=== PATIENT | male | born 1985 | race Caucasian/White ===

== ENCOUNTER → 2019-06-12 09:59 | Outpatient (CLI) | payer OTHER, SELFPAY ==
--- NOTE | 2019-06-12 10:03 | NM_ITS ---
CLINICAL: 33-year-old male with history of right upper quadrant abdominal pain. RADIONUCLIDE HEPATOBILIARY SCINTIGRAPHY COMPARISON: None available FINDINGS: Following the intravenous administration of 5.5 mCi of 99m Tc Mebrofenin, hepatobiliary images reveal: 1. Relatively prompt and homogeneous radiopharmaceutical concentration is noted by a normal sized liver. No parenchymal defects are identified. 2. Gallbladder activity is identified at 15 minutes post radiopharmaceutical administration. 3. Small intestinal tract is observed at 10 minutes following tracer injection. 4. Washout of the radiopharmaceutical by the hepatic parenchyma appears qualitatively normal. Cholecystokinin (0.02 ug/kg) was administered intravenously over a 30-minute period. The post CCK gallbladder ejection fraction calculated at 20 minutes following Cholecystokinin administration was noted to be 48.0 % (normal greater than 35%). During 30 minutes of post CCK imaging, there is no scintigraphic evidence of reflux of the radiotracer into the common hepatic duct or refilling of the gallbladder. There is scintigraphic evidence of subtle post CCK duodenal gastric reflux. NM/Hepatobilliary Img w/Pharm Int IMPRESSION: 1. A gallbladder ejection fraction calculated to be greater than 35% following the administration of Cholecystokinin makes the probability of functional hepatobiliary disease (gallbladder and/or sphincter of Oddi dyskinesia) and/or organic hepatobiliary disease (chronic acalculous cholecystitis and/or cystic duct syndrome) to be low. (Alba Cevallos et al, Journal of Nuclear Medicine 32:1695, 1990). 2. There is scintigraphic evidence of post CCK duodenal-gastric reflux as described above. (Radha et al, Nucl Med Dede Anita Press pg. 35, 1980). Electronically Signed: Aramis Deras DO at 8:07 EST Tel , Service support ,
== END ==
PROVIDERS: Family Provider Family Medicine; PCP Family Medicine; Referring Provider Family Medicine; Visit Provider Family Medicine
DX: R10.11 Right upper quadrant pain (principal)
CPT/HCPCS: 78227; A9537; J2805

== ENCOUNTER 2019-10-20 07:28 | Day surgery (SDC) | payer OTHER, SELFPAY ==
[2019-10-20 08:23] VITALS: BP 140/82; PULSE 54; RESP 16; TEMP 36.6; O2SAT 99; BMI 30.7
[2019-10-20] MEDS: Lactated Ringers 1,000 ML 100 ML IV (08:52)
--- NOTE | 2019-10-20 09:15 | DCINST_ITS ---
You will use the following diet at home:: No restrictions Your food should be the consistency of: Regular Discharge Activity: May not drive while taking narcotic pain medications. Call your doctor if your incision/area has: Increased Pain/ Swelling Additional Dressing/Incision Instructions:: head of bed elevation. mupirocin to nostrils and incision twice daily. saline to nostrils 5 times daily. keep nasal cast dry - except the morning of your follow up get your nose very wet. Allergies/Adverse Reactions: Allergies No Known Allergies Allergy (Verified 10/19/19 11:47) Medications to take at Discharge Cholecalciferol (Vitamin D3) [Vitamin D3] 25 mcg PO DAILY 10/19/19 Fluoxetine [Prozac] 20 mg PO DAILY 10/19/19 Omeprazole [Prilosec] 20 mg PO DAILY 10/19/19 Primary Care Physician: Cassandra Yousif PA-C [Primary Care Provider] - Test Results: Test results from this visit will be discussed in further detail at your follow- up appointment, if applicable. Please Follow Up With: Lemuel Wu MD When: 1 week
--- NOTE | 2019-10-20 09:18 | PCM.OPRPT ---
Problem List (1) Nasal congestion Status: Chronic (2) Deviated nasal septum Status: Chronic (3) Nasal valve collapse Status: Chronic (4) Nasal turbinate hypertrophy Status: Chronic Report of Operation Date of Procedure: 10/20/19 Pre-Operative Diagnosis: 1. nasal congestion. 2. nasal septal deviation. 3. acquired nasal deformity. 4. turbinate hypertrophy, right and left. 5. internal nasal valve collapse, right and left Post-Operative Diagnosis: 1. nasal congestion. 2. nasal septal deviation. 3. acquired nasal deformity. 4. turbinate hypertrophy, right and left. 5. internal nasal valve collapse, right and left Surgery/Procedure Performed:: 1. open septorhinoplasty. 2. correction internal nasal valve collapse, right and left. 3. submucous resection inferior turbinates, right and left Type of Anesthesia:: General/Regional Description of Procedure: on the day of the procedure, after appropriate informed consent was obtained, the patient was brought to the operating room and placed in supine position on the operating table. he was placed under general endotracheal anesthesia by the anesthesiologist. the endotracheal tube was secured, the eyes were taped. the table was rotated 90 degrees toward the anesthesiologist. the nose was injected with lidocaine/epinephrine and decongested with oxymetazoline soaked pledgets. the face was prepped and draped in sterile fashion. an inverted v columellar incision was made with a point hope ira blade. this was taken into right and left marginal incisions using three point retraction and an iris scissor. the right and left lower lateral cartilages were skeletonized. the scroll region was located and the right and left upper lateral cartilages were skeletonized. the medial crura were lateralized with brown forceps and the anterior septal angle was located. the septum was off of the maxillary crest into the left nasal cavity. right and left submucoperichondrial flaps were raised with a apolinar elevator. these were taken posteriorly to the bony cartilaginous junction and inferiorly to the maxillary crest. given the patient's severe deformity, an anterior septal reconstruction was deemed necessary. a 1cm x 1cm area was preserved off of the keystone area and the remainder of the septum was removed with a apolinar elevator. this was refashioned to the correct shape and saved for later reconstruction. deviated portions of the perpendicular plate of the ethmoid and vomer were removed using a pema helton. the right and left upper lateral cartilages were disarticulated from the septum using a 15 blade. a 1cm x 2mm internal customer advisor specialist graft was placed between the right upper lateral cartilage and nasal septum. this was sutured into place using 4-0 PDS. the refashioned septum was placed as a left internal customer advisor specialist graft and sutured to the maxillary crest and in between the left upper lateral cartilage and septum using 4-0 PDS. a 8mm x 2mm columellar strut was sutured into place to facilitate tip support. the submucoperichondrial flaps were reapproximated using 4-0 chromic, several incorporating the anterior septal reconstruction. the head of the right and left inferior turbinates were injected with lidocaine/epinephrine. the head of the right inferior turbinate was incised using a 15 blade, dissected submucosally using a apolinar elevator, reduced using suction electrocautery and outfractured using a boies elevator. the head of the left inferior turbinate was incised using a 15 blade, dissected submucosally using a apolinar elevator, reduced using suction electrocautery and outfractured using a boies elevator. the inverted v columellar incision was closed using 7-0 vicryl. felix splints were sutured into place and a dorsal nasal splint was placed. an orogastric tube was inserted and contents were evacuated. the latera system trocar was loaded and nasal surface cruz were made. the right ala was everted with a double pronged skin hook and the trocar was inserted into the vestibular skin. this was taken lateral to the upper lateral cartilages and nasal bones. the implant was deployed. the left ala was everted with a double pronged skin hook and the trocar was inserted into the vestibular skin. this was taken lateral to the upper lateral cartilages and nasal bones. the implant was deployed. the patient was awoken from anesthesia and transferred to the PACU in stable condition.
[2019-10-20] MEDS: Oxymetazoline 0.05% 1 SPRAY SPRAY.BTL 15 SPRAY (10:19)
[2019-10-20] MEDS: Mupirocin Ointment 22gm Tube 1 APPLIC (10:22)
[2019-10-20 12:37] VITALS: BP 118/82; BP 140/82; PULSE 90; RESP 16; TEMP 35.9; O2SAT 92
[2019-10-20 12:45] VITALS: BP 136/71; BP 140/82; PULSE 85; RESP 16; O2SAT 94
[2019-10-20 13:02] VITALS: BP 140/82; BP 140/86; PULSE 86; RESP 16; O2SAT 94
[2019-10-20 13:04] VITALS: BP 140/82; BP 142/83; PULSE 84; RESP 16; TEMP 36.5; O2SAT 94
[2019-10-20 13:59] VITALS: BP 136/81; BP 140/82; PULSE 69; RESP 16; TEMP 36.7; O2SAT 96
== END 2019-10-20 14:05 | disposition home or self-care (01) ==
LOC: SDC 07:30 → AC 07:30
PROVIDERS: PCP Family Medicine; Referring Provider Otolaryngology; Visit Provider Otolaryngology
PROC: (CPT 30140; principal; 2019-10-20 09:05)
DX: J34.2 Deviated nasal septum (principal); J34.3 Hypertrophy of nasal turbinates; J34.89 Other specified disorders of nose and nasal sinuses; M95.0 Acquired deformity of nose; R09.81 Nasal congestion; F41.9 Anxiety disorder, unspecified; Z79.899 Other long term (current) drug therapy; Z11.59 Encounter for screening for other viral diseases
CPT/HCPCS: 00160; 30140; 30420; 87635; G2023; J7120; J2405; U0002

== ENCOUNTER 2020-04-25 07:20 | Day surgery (SDC) | payer OTHER, SELFPAY ==
[2020-03-25 13:06] VITALS: BMI 31.0
[2020-04-25 07:35] VITALS: BP 131/75; PULSE 67; RESP 16; TEMP 36.1; O2SAT 99; BMI 31.2
--- NOTE | 2020-04-25 07:47 | HP_ITS ---
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 Is patient in pain?: No Allergies No Known Allergies Allergy (Verified 03/25/20 13:07) Medications Cholecalciferol (Vitamin D3) [Vitamin D3] 25 mcg PO DAILY 10/19/19 [History Confirmed 03/25/20] Fluoxetine [Prozac] 20 mg PO DAILY 10/19/19 [History Confirmed 03/25/20] Omeprazole [Prilosec] 20 mg PO DAILY 10/19/19 [History Confirmed 03/25/20] [facility] Medical History Nasal congestion (Chronic) Deviated nasal septum (Chronic) Nasal valve collapse (Chronic) Nasal turbinate hypertrophy (Chronic) Anxiety (Acute) Diarrhea (Acute) GERD (gastroesophageal reflux disease) (Acute) History of back problems (Acute) Surgical History History of rhinoplasty (Acute) history balloon sinusplasty (Acute) Family History Grandfather Cancer prostate cancer Social History (Updated 03/25/20 @ 13:[address] 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 Patient said that earlier this year he had right upper quadrant abdominal pain and was being worked up for gallbladder he had a HIDA scan with ejection fraction which showed it to be about 48% and a gallbladder ultrasound which showed no sonographic Rod sign no pericholecystic fluid and no gallstones. His common bile duct measured 2.5 mm. Patient has been having issues with reflux over the last 2 to 3 years. He has taken [id number] Prilosec on 2 separate occasions and its worked well for him but he still has it if he is not on the medication on a fairly regular basis. Since the spring the patient has been experiencing diarrhea is worse when he has been drinking his preworkout drink occasionally with beer but many times is just spontaneous and without provocation. He has no family history of Crohn's disease ulcerative colitis or celiac disease. Sometimes with his diarrhea he will have abdominal pain he has had no fevers joint nausea he has had no recent travels to the tropics he has not started any new medications he has not noticed any weight loss. He states that many times that the stools have been mucousy in nature with high volumes of fluids and foul-smelling at times. ROS General General: Yes weight change; no appetite, fatigue, colon cancer, breast cancer or weakness HEENT HEENT: No difficulty swallowing, eye injury, eye surgery, swollen glands or hoarseness Endo Endocrine: No thyroid disease, diabetes mellitus, thyroid cancer, Hair loss, heat intolerance or cold intolerance Skin Skin: No rash or changing moles Breast Breast: No left breast lump, right breast lump, nipple discharge, breast pain, abnormal mammogram, abnormal US or breast enlargement Musc Musculoskeletal: Yes back problems; no arthritis, rheumatoid arthritis, gout or joint pain Cardio Cardiovascular: No murmur, pacemaker, heart disease, atrial fibrillation, high blood pressure, heart attack, heart stent, palpitations, shortness of breat with exertion or chest pain Psych Psychiatric: Yes anxiety; no depression or hearing voices Resp Respiratory: No shortness of breath, No sleep apnea, No cough, No COPD, No asthma, No emphysema, No wheezing Gastro Gastrointestinal: Yes abdominal pain, No nausea or vomiting, Yes diarrhea, No constipation, No blood in stool, Yes acid reflux, No hemorrhoids, No ulcers, Yes gallbladder problem, Yes black,tarry stools Alejandro Hematologic: No blood thinners, No blood disorders, No bleeding, No anemia, No blood clots Neuro Neurologic: No system reviewed and no additional complaints, except as docu, No as per HPI, No abnormal walking, No abnormal hearing, No abnormal movements, No abnormal speech, No behavioral changes, No burning sensations, No confusion, No seizure-like activity, No unsteadiness, No dizziness, No localized weakness, No frequent falls, No headache(s), No lack of coordination, No loss of vision, No memory loss, Yes numbness, No other visual disturbances, No radiating pain, No restless legs, No sensory deficit, No fainting, Yes tingling, No tremor(s), No weakness, No other Exam Const General: no acute distress, well developed, well hydrated Orientation: oriented to person, oriented to place, oriented to time [facility] Head: normocephalic, atraumatic Ears: external ears normal Mouth: moist mucous membranes Eyes Sclera: sclerae normal Pupils: normal by confrontation Neck Neck: no lymphadenopathy noted Neck mass: No Thyroid: thyroid normal, symmetrical Chest Chest palpation & inspection: normal inspection of the chest Breast Palpation: No nipple discharge Resp Effort & Inspection: normal respiratory effort Auscultation: clear to auscultation bilaterally Percussion: percussion normal Cardio Rate: regular rate Rhythm: regular rhythm Heart Sounds: no murmurs GI Palpation: soft, no hepatosplenomegaly, no masses, nontender Rectal Exam: other Other: Rectal exam deferred. Extrem General: normal to inspection, no clubbing, cyanosis or edema Assessment & Plan Problems 1. Gastroesophageal reflux disease, unspecified whether esophagitis present K21.9 2. Diarrhea, unspecified type R19.7 Plan I have discussed the above with the patient. I have offered the patient colonoscopy As well as an EGD for evaluation. I have explained the risks/benefits of the procedure and described the procedure. I have discussed the risks with the patient, including but not limited to: infection, bleeding, perforation of the GI tract requiring emergency surgery, inability to complete the procedure, injury to any internal organs, complications of anesthesia, etc. - the patient understands and agrees to proceed. I have answered all the patient's questions to the patient's satisfaction and the patient has no further questions. The patient has been given instructions for the colon cleansing preparation. We will be doing a biopsy of his duodenum as well as random colon biopsies. Coding Level of Care Code Off vis,new,level 3 Diagnoses Gastroesophageal reflux disease, unspecified whether esophagitis present K21.9 ??Esophagitis presence: esophagitis presence not specified Diarrhea, unspecified type R19.7 ??Diarrhea type: unspecified type COVID (Procedure Consent) Procedure Criteria Procedure Criteria: Yes Elective The surgeon/proceduralist and patient have discussed in detail the risk of exposure to and/or potential harm posed by the COVID-19 virus with having a surgery/procedure at this time versus the risk of? delaying the surgery/procedure. It is not possible to know either the risk of delaying the surgery or procedure or chance of getting an infection with perfect accuracy, but a joint decision was made between the patient and the surgeon/proceduralist ?to proceed at this time with the scheduled surgery/procedure as indicated on the consent form. I have re-examined the patient. There are no clinical changes since date of exam.
--- NOTE | 2020-04-25 08:30 | COLBX_PTH ---
PATIENT: ALOK SPICER LOC: EN U#:[id number] AGE/SX: 34/M ROOM: RE04/25/[address]: Dr. Sai Doss MD : 1985 BED: DIS: 04/25/2020 SPEC #: [id number] RECD: 04/25/20 11:40 STATUS: XAVIER HELEN #: [id number] SUDHA: 04/25/20 08:[address]: Sai Doss DEPT: SURGICAL PATHOLOGY RECD BY: Chintan Smith ENTERED: 04/25/20 13:03 SP TYPE: COLON BX OTHR DR: Cassandra Yousif PA-C Tissues: A - Duodenum, NOS B - Gastric mucous membrane C - Esophageal mucous membrane D - COLON BIOPSY E - Transverse colon Procedures: Special Stain Group II Surgery Specimen Level IV Alcian Blue/PAS (control) HEADER OPERATION: [place] [place] DIAGNOSIS: GERD, diarrhea TISSUE SUBMITTED: A - Duodenal biopsies, B - Biopsy for H. pylori, C - Esophageal biopsies, D - Random colonic biopsies, E - Polyp transverse colon MICROSCOPIC DIAGNOSIS A. Duodenal biopsy: Fragments of small intestinal mucosa, no pathologic diagnosis. B. Biopsy for H. pylori: Mild gastritis. See microscopic description and comment. C. Esophageal biopsy: Fragments of gastroesophageal mucosa with chronic inflammation. Intestinal metaplasia (goblet cell metaplasia) is not identified. See comment. D. Colon, random biopsy: Fragments of colonic mucosa, no pathologic diagnosis. E. Polyp transverse colon, biopsy: Fragments of hyperplastic polyp. SJ:edgard 04/26/20 COMMENT B. The results of immunohistochemistry for Helicobacter pylori will be reported separately ([id number]). C. Alcian blue/PAS stain with matched control is used in the evaluation of the specimen. MICROSCOPIC DESCRIPTION Slides are reviewed. B. The specimen shows fragments of gastric mucosa with chronic inflammatory cell infiltrates in the lamina propria consisting of lymphocytes and plasma cells, consistent with mild chronic gastritis. GROSS DESCRIPTION A - Received in fixative is one container labeled with the patient's name and designated duodenal biopsy. The specimen consists of two irregular fragments of light boyle soft tissue that in aggregate measure 0.4 x 0.3 x 0.1 cm. The specimen is totally submitted in one cassette. B - Received in fixative is one container labeled with the patient's name and designated biopsy for H. pylori. The specimen consists of multiple irregular fragments of light boyle soft tissue that in aggregate measure 0.5 x 0.2 x 0.1 cm. The specimen is totally submitted in one cassette. C - Received in fixative is one container labeled with the patient's name and designated esophageal biopsy. The specimen consists of multiple irregular fragments of light boyle soft tissue that in aggregate measure 1 x 0.4 x 0.1 cm. The specimen is totally submitted in one cassette. D - Received in fixative is one container labeled with the patient's name and designated random colonic biopsy. The specimen consists of multiple irregular fragments of light boyle soft tissue that in aggregate measure 1 x 1.2 x 0.1 cm. The specimen is totally submitted in one cassette. E - Received in fixative is one container labeled with the patient's name and designated polyp transverse colon. The specimen consists of multiple irregular fragments of light boyle soft tissue that in aggregate measure 0.8 x 0.5 x 0.1 cm. The specimen is totally submitted in one cassette. / SJ:rg 04/25/20 TC:1 [facility]: [id number] x5, [id number]
--- NOTE | 2020-04-25 08:30 | IMM_PTH ---
PATIENT: ALOK SPICER LOC: EN U#:[id number] AGE/SX: 34/M ROOM: RE04/25/[address]: Dr. Sai Doss MD : 1985 BED: DIS: 04/25/2020 SPEC #: [id number] RECD: 04/25/20 14:21 STATUS: XAVIER REQ #: [id number] SUDHA: 04/25/20 08:[address]: Sai Doss DEPT: IMMUNOHISTOCHEMISTRY RECD BY: Hanna Harding ENTERED: 04/25/20 14:22 SP TYPE: IMMUNO OTHR DR: Cassandra Yousif PA-C Tissues: B - Stomach, NOS Procedures: H Pylori (initial) PHYSICIAN & INSTITUTION [place] [id number] SPECIMEN INFORMATION: Tissue Source: B - Antrum biopsy Clinical Info: GERD, diarrhea Specimen Number: [id number] CPT code: 36762 METHODOLOGY: Deparaffinized sections of prefer/formalin-fixed tissue or PAP/DQ stained slides are incubated with monoclonal/polyclonal antibodies/oligonucleotide probes. Localization is made via biotin free immunoperoxidase method. Appropriate controls are performed and reacted as expected. Results on target cell population are indicated in the following table: RESULTS: ANTIBODY / CLONE RESULT Block B H Pylori (polyclonal) negative These tests were developed and their performance characteristics determined by [facility]. They may not have been cleared or approved by the U.S. Food and Drug Administration. The FDA has determined that such clearance or approval is not necessary. INTERPRETATION: B. Antrum, biopsy: Negative for Helicobacter pylori organisms. AM:edgard 04/27/20
[2020-04-25 09:05] VITALS: BP 117/69; BP 131/75; PULSE 79; RESP 16; TEMP 35.9; O2SAT 97
[2020-04-25 09:10] VITALS: BP 122/71; BP 131/75; PULSE 77; RESP 16; O2SAT 94
--- NOTE | 2020-04-25 09:10 | OP.EGD_ITS ---
Patient Name: Kaveh Wood Procedure Date: 04/25/2020 8:31 AM Date of : 1985 Age: 34 Procedure: Upper GI endoscopy Indications: Gastro-esophageal reflux disease Providers: Sai Doss MD Referring MD: Cassandra Yousif Medicines: See the Anesthesia note for documentation of the administered medications Patient Profile: This is a 34 year old male. Refer to note in patient chart for documentation of history and physical. Complications: No immediate complications. Procedure: Pre-Anesthesia Assessment: - Prior to the procedure, a History and Physical was performed, and patient medications and allergies were reviewed. The patient's tolerance of previous anesthesia was also reviewed. The risks and benefits of the procedure and the sedation options and risks were discussed with the patient. All questions were answered, and informed consent was obtained. Prior Anticoagulants: The patient has taken no previous anticoagulant or antiplatelet agents. ASA Grade Assessment: II - A patient with mild systemic disease. After reviewing the risks and benefits, the patient was deemed in satisfactory condition to undergo the procedure. After obtaining informed consent, the endoscope was passed under direct vision. Throughout the procedure, the patient's blood pressure, pulse, and oxygen saturations were monitored continuously. The Endoscope was introduced through the mouth, and advanced to the second part of duodenum. The upper GI endoscopy was accomplished without difficulty. The patient tolerated the procedure well. Scope In: 8:42:21 AM Scope Out: 8:47:13 AM Total Procedure Duration Time 0 hours 4 minutes 52 seconds Findings: LA Grade A (one or more mucosal breaks less than 5 mm, not extending between tops of 2 mucosal folds) esophagitis with no bleeding was found at the gastroesophageal junction. Biopsies were taken with a cold forceps for histology. The entire examined stomach was normal. Biopsies were taken with a cold forceps for Helicobacter pylori testing. The examined duodenum was normal. Biopsies for histology were taken with a cold forceps for evaluation of celiac disease. Impression: - LA Grade A reflux esophagitis. Rule out Eugene's esophagus. Biopsied. - Normal stomach. Biopsied. - Normal examined duodenum. Biopsied. Recommendation: - Await pathology results. - Repeat upper endoscopy (date not yet determined) for surveillance. - Return to my office in 1 week. - Continue present medications. Procedure Code(s): --- Professional --- 48378, Esophagogastroduodenoscopy, flexible, transoral; with biopsy, single or multiple Diagnosis Code(s): --- Professional --- K21.0, Gastro-esophageal reflux disease with esophagitis CPT copyright 2017 [employer]. All rights reserved. The codes documented in this report are preliminary and upon chief procurement officer review may be revised to meet current compliance requirements. MD Sai Lizarraga MD 04/25/2020 9:10:26 AM This report has been signed electronically. Number of Addenda: 0 Note Initiated On: 04/25/2020 8:31 AM
--- NOTE | 2020-04-25 09:10 | OP.CCLET_ITS ---
04/25/2020 Cassandra Yousif Re : Upper GI endoscopy procedure for Kaveh Yousif This procedure was performed on Saturday, April 25, 2020. My impressions and recommendations are as follows: Impressions : - LA Grade A reflux esophagitis. Rule out Eugene's esophagus. Biopsied. - Normal stomach. Biopsied. - Normal examined duodenum. Biopsied. Recommendations : - Await pathology results. - Repeat upper endoscopy (date not yet determined) for surveillance. - Return to my office in 1 week. - Continue present medications. My findings are described in the full procedure note, which is enclosed. If I can be of further assistance, please feel free to contact me at Doctor phone number(s): , Fax: [phone], Work: . Sincerely, MD Sai Lizarraga MD 04/25/2020 9:10:26 AM This report has been signed electronically.
--- NOTE | 2020-04-25 09:12 | OP.COLON_ITS ---
Patient Name: Kaveh Wood Procedure Date: 04/25/2020 8:48 AM Date of : 1985 Age: 34 Procedure: Colonoscopy Indications: Clinically significant diarrhea of unexplained origin Providers: Sai Doss MD Referring MD: Cassandra Yousif Medicines: See the Anesthesia note for documentation of the administered medications Patient Profile: This is a 34 year old male. Refer to note in patient chart for documentation of history and physical. Last Colonoscopy: none. The patient's first colonoscopy is today. Complications: No immediate complications. Procedure: Pre-Anesthesia Assessment: - Prior to the procedure, a History and Physical was performed, and patient medications and allergies were reviewed. The patient's tolerance of previous anesthesia was also reviewed. The risks and benefits of the procedure and the sedation options and risks were discussed with the patient. All questions were answered, and informed consent was obtained. Prior Anticoagulants: The patient has taken no previous anticoagulant or antiplatelet agents. ASA Grade Assessment: II - A patient with mild systemic disease. After reviewing the risks and benefits, the patient was deemed in satisfactory condition to undergo the procedure. After I obtained informed consent, the scope was passed under direct vision. Throughout the procedure, the patient's blood pressure, pulse, and oxygen saturations were monitored continuously. The Colonoscope was introduced through the anus and advanced to the cecum, identified by appendiceal orifice and ileocecal valve. The colonoscopy was performed without difficulty. The patient tolerated the procedure well. The quality of the bowel preparation was good. Scope In: 8:49:33 AM Scope Withdrawal Time 0 hours 7 minutes 58 seconds Scope Out: 9:00:39 AM Total Procedure Duration Time 0 hours 11 minutes 6 seconds Findings: A 5 mm polyp was found in the transverse colon. The polyp was sessile. The polyp was removed with a jumbo cold forceps. Resection and retrieval were complete. Non-bleeding internal hemorrhoids were found during retroflexion. The hemorrhoids were mild and small. The colon (entire examined portion) appeared normal. Biopsies for histology were taken with a cold forceps from the entire colon for evaluation of microscopic colitis. The exam was otherwise without abnormality. Impression: - One 5 mm polyp in the transverse colon, removed with a jumbo cold forceps. Resected and retrieved. - Non-bleeding internal hemorrhoids. - The entire examined colon is normal. Biopsied. - The examination was otherwise normal. Recommendation: - Discharge patient to home. - Resume previous diet. - Continue present medications. - Await pathology results. - Repeat colonoscopy in 5-10 years for surveillance. - Return to my office in 1 week. Procedure Code(s): --- Professional --- 77941, Colonoscopy, flexible; with biopsy, single or multiple Diagnosis Code(s): --- Professional --- D12.3, Benign neoplasm of transverse colon (hepatic flexure or splenic flexure) K64.8, Other hemorrhoids R19.7, Diarrhea, unspecified CPT copyright 2017 [employer]. All rights reserved. The codes documented in this report are preliminary and upon finished yarn examiner review may be revised to meet current compliance requirements. MD Sai Lizarraga MD 04/25/2020 9:12:31 AM This report has been signed electronically. Number of Addenda: 0 Note Initiated On: 04/25/2020 8:48 AM
--- NOTE | 2020-04-25 09:13 | OP.CCLET_ITS ---
04/25/2020 [facility] Re : Colonoscopy procedure for Kaveh Yousif This procedure was performed on Saturday, April 25, 2020. My impressions and recommendations are as follows: Impressions : - One 5 mm polyp in the transverse colon, removed with a jumbo cold forceps. Resected and retrieved. - Non-bleeding internal hemorrhoids. - The entire examined colon is normal. Biopsied. - The examination was otherwise normal. Recommendations : - Discharge patient to home. - Resume previous diet. - Continue present medications. - Await pathology results. - Repeat colonoscopy in 5-10 years for surveillance. - Return to my office in 1 week. My findings are described in the full procedure note, which is enclosed. If I can be of further assistance, please feel free to contact me at Doctor phone number(s): , Fax: [phone], Work: . Sincerely, MD Sai Lizarraga MD 04/25/2020 9:12:31 AM This report has been signed electronically.
[2020-04-25 09:15] VITALS: BP 105/58; BP 131/75; PULSE 66; RESP 16; O2SAT 93
[2020-04-25 09:20] VITALS: BP 116/54; BP 131/75; PULSE 67; RESP 16; TEMP 36.3; O2SAT 96
[2020-04-25 09:55] VITALS: BP 131/75
== END 2020-04-25 09:56 | disposition home or self-care (01) ==
LOC: EN 07:20 → AC 07:20
PROVIDERS: PCP Family Medicine; Referring Provider Family Medicine; Visit Provider Surgery
PROC: 0DJD8ZZ Inspection of Lower Intestinal Tract, Via Natural or Artificial Opening Endoscopic (ICD-10-PCS; CPT 45378; principal; 2020-04-25 08:25)
DX: D12.3 Benign neoplasm of transverse colon (principal); K21.00 Gastro-esophageal reflux disease with esophagitis, without bleeding; K64.8 Other hemorrhoids; Z20.828 Contact with and (suspected) exposure to other viral communicable diseases; R19.7 Diarrhea, unspecified; K29.50 Unspecified chronic gastritis without bleeding; Z79.899 Other long term (current) drug therapy
CPT/HCPCS: 43239; 45380; 87426; 88305; 88313; 88342; C9803; J7120; J1610

== ENCOUNTER → 2024-02-26 | Outpatient (CLI) | payer OTHER, SELFPAY | END | disposition home or self-care (01) | LOC: SL 20:06 | PROVIDERS: PCP Family Medicine | DX: G47.33 Obstructive sleep apnea (adult) (pediatric) (principal) | CPT/HCPCS: 95810 ==

== ENCOUNTER → 2024-03-25 | Outpatient (CLI) | payer OTHER, SELFPAY | END | disposition home or self-care (01) | LOC: SL 19:59 | DX: G47.33 Obstructive sleep apnea (adult) (pediatric) (principal) | CPT/HCPCS: 95811 ==

== ENCOUNTER → 2024-03-26 | Outpatient (CLI) | payer OTHER, SELFPAY ==
[2024-03-26] MEDS: Fluoxetine HCl 40 MG CAPSULE PO (06:54)
== END | disposition home or self-care (01) ==
DX: G47.10 Hypersomnia, unspecified (principal)
CPT/HCPCS: 95805